=== PATIENT | male | born 1990 | race Caucasian/White ===

== ENCOUNTER 2021-10-12 15:25 | Emergency (ER) | payer OTHER ==
[~2021-10-12] VITALS: Ht 182.9 cm; Wt 75.0 kg
[2021-10-12 16:20] VITALS: BP 112/82
== END 2021-10-12 19:38 | disposition home or self-care (01) ==
LOC: ER 15:26
DX: S63.8X2A Sprain of other part of left wrist and hand, initial encounter (principal); M79.645 Pain in left finger(s); W19.XXXA Unspecified fall, initial encounter; Y93.89 Activity, other specified; Y92.89 Other specified places as the place of occurrence of the external cause; Y99.8 Other external cause status
CPT/HCPCS: 29125; 73130; 99283